=== PATIENT | female | born 1950 | race Caucasian/White ===

== ENCOUNTER 2019-10-21 13:47 | Observation (INO) ==
[2019-10-21] MEDS ORDERED: Aspirin 81 MG TAB.CHEW PO ONE (14:16)
[2019-10-21] MEDS ORDERED: 0.9 % Sodium Chloride 500 ML IVC ONE (14:16)
[2019-10-21 14:52] LABS: Basophils % 0.6 %; Eosinophils % 0.6 %; Hematocrit 45.1 % (35.3-44.9); Hemoglobin 15.6 g/dL (11.5-15.4); Immature Granulocytes % 0.1 % (0-4); Lymphocytes # 2.4 K/mcL (0.6-4.6); Lymphocytes % 33.7 %; Mean Corpuscular HGB Conc 34.6 g/dL (31.6-35.5); Mean Corpuscular Hemoglobin 32.5 pg (28.0-33.3); Mean Platelet Volume 10.3 fL (9.4-12.4); Monocytes # 0.5 K/mcL (0.0-1.3); Monocytes % 6.9 %; Neutrophils # 4.1 K/mcL (1.6-8.9); Platelet Count 159 K/mcL (140-400); Segmented Neutrophils % 58.1 %
[2019-10-21 14:59] LABS: INR 1.3; Prothrombin Time 15.2 Seconds (9.4-12.1)
[2019-10-21 15:02] LABS: Activated Partial Thrombo Time 32.5 Seconds (26.0-36.0)
[2019-10-21 15:03] LABS: D-Dimer < 215 ng/mLFEU (0-500)
[2019-10-21 15:12] LABS: Alanine Aminotransferase 25 Units/L (7-52); Albumin 4.1 g/dL (3.5-5.7); Albumin/Globulin Ratio 1.5 (1.1-2.2); Alkaline Phosphatase 75 Units/L (34-104); Amylase 34 Units/L (29-103); Aspartate Amino Transferase 30 Units/L (13-39); BUN/Creatinine Ratio 13 (6-26); Bilirubin,Direct 0.1 mg/dL (0.0-0.2); Bilirubin,Indirect 0.5 mg/dL (0.0-1.0); Bilirubin,Total 0.6 mg/dL (0.3-1.0); Blood Urea Nitrogen 11 mg/dL (8-23); Calcium 10.5 mg/dL (8.6-10.3); Carbon Dioxide 25 mEq/L (23-29); Chloride 102 mEq/L (98-107); Globulin 2.7 g/dL (2.4-3.5); Glucose 99 mg/dL (70-105); Lipase 57 Units/L (11-82); Osmolality,Calculated 279 (280-300); Potassium 4.3 mEq/L (3.5-5.1); Sodium 135 mEq/L (136-145); Total Protein 6.8 g/dL (6.4-8.9); Troponin I < 0.03 ng/mL (< 0.04); eGFR For African Americans > 60 (> 60); eGFR For Non-African Americans > 60 (> 60)
[2019-10-21] MEDS ORDERED: Perflutren Lipid Microsphere 1.3 ML in 0.9 % Sodium Chloride 8.7 ML IVP PRN (18:45)
[2019-10-21] MEDS ORDERED: Ondansetron ODT 4 MG TAB.RAPDIS SL PRN (18:50)
[2019-10-21] MEDS ORDERED: Naloxone 0.4 MG/ML INJ IVP PRN (18:50)
[2019-10-21] MEDS ORDERED: Nitroglycerin 0.4 MG TAB.SUBL SL PRN (18:57)
[2019-10-21] MEDS: Apixaban 5 MG TABLET PO SCH (19:53)
[2019-10-21] MEDS: *HR* HYDROcodone/Acet 10/325 mg TABLET PO PRN (19:53)
[2019-10-21] MEDS: Carisoprodol 350 MG TABLET PO PRN (23:02)
[2019-10-22 04:34] LABS: Basophils % 0.3 %; Eosinophils # 0.1 K/mcL (0.0-0.6); Eosinophils % 1.4 %; Hematocrit 45.4 % (35.3-44.9); Hemoglobin 15.5 g/dL (11.5-15.4); Immature Granulocytes % 0.3 % (0-4); Lymphocytes # 2.4 K/mcL (0.6-4.6); Mean Corpuscular HGB Conc 34.1 g/dL (31.6-35.5); Mean Corpuscular Hemoglobin 32.6 pg (28.0-33.3); Mean Corpuscular Volume 95.4 fL (83.0-100.0); Monocytes # 0.6 K/mcL (0.0-1.3); Monocytes % 10.7 %; Neutrophils # 2.6 K/mcL (1.6-8.9); Platelet Count 154 K/mcL (140-400); Red Blood Count 4.76 M/mcL (3.82-4.97); Red Cell Distribution Width 11.9 % (11.5-14.5); Segmented Neutrophils % 45.3 %; White Blood Count 5.8 K/mcL (4.3-11.1)
[2019-10-22 04:54] LABS: BUN/Creatinine Ratio 15 (6-26); Blood Urea Nitrogen 10 mg/dL (8-23); Calcium 10.7 mg/dL (8.6-10.3); Carbon Dioxide 25 mEq/L (23-29); Chloride 106 mEq/L (98-107); Glucose 110 mg/dL (70-105); Magnesium 1.9 mg/dL (1.6-2.6); Osmolality,Calculated 286 (280-300); Potassium 3.7 mEq/L (3.5-5.1); Sodium 138 mEq/L (136-145); eGFR For African Americans > 60 (> 60); eGFR For Non-African Americans > 60 (> 60)
[2019-10-22] MEDS ORDERED: Regadenoson 0.4 MG/5 ML SYRINGE IVP ONE (06:08)
[2019-10-22] MEDS ORDERED: lisinopriL 20 MG TABLET PO SCH (09:00)
[2019-10-22] MEDS ORDERED: amLODIPine 5 MG TABLET PO SCH (09:00)
[2019-10-22] MEDS ORDERED: Aspirin Enteric Coated 81 MG Tablet PO SCH (09:00)
[2019-10-22] MEDS: *HR* HYDROcodone/Acet 10/325 mg TABLET PO PRN ×2 (09:39→16:19)
[2019-10-22] MEDS: Apixaban 5 MG TABLET PO SCH (09:42)
[2019-10-22] MEDS: Carisoprodol 350 MG TABLET PO PRN (10:44)
[2019-10-22 12:42] VITALS: BP 148/93
== END 2019-10-22 16:45 | disposition home or self-care (01) ==
LOC: EMEROOARM 13:47 → 3BNU 13:47 → SUATTDRO 17:09 → 3BNU 18:44
PROVIDERS: ADMIT Internal Medicine; ATTEND Internal Medicine

== ENCOUNTER 2020-08-02 10:57 | Observation (INO) ==
[2020-08-02] MEDS ORDERED: Pantoprazole 80 MG in 0.9 % Sodium Chloride 50 ML IVPB ONE (11:15)
[2020-08-02 11:31] LABS: Basophils # 0.1 K/mcL (0.0-0.2); Basophils % 0.6 %; Eosinophils # 0.1 K/mcL (0.0-0.6); Eosinophils % 0.8 %; Hematocrit 41.2 % (35.3-44.9); Hemoglobin 14.2 g/dL (11.5-15.4); Immature Granulocytes % 0.6 % (0-4); Lymphocytes # 2.4 K/mcL (0.6-4.6); Lymphocytes % 24.5 %; Mean Corpuscular HGB Conc 34.5 g/dL (31.6-35.5); Mean Corpuscular Hemoglobin 32.6 pg (28.0-33.3); Mean Corpuscular Volume 94.7 fL (83.0-100.0); Mean Platelet Volume 10.5 fL (9.4-12.4); Monocytes # 0.6 K/mcL (0.0-1.3); Monocytes % 6.3 %; Neutrophils # 6.5 K/mcL (1.6-8.9); Platelet Count 159 K/mcL (140-400); Red Blood Count 4.35 M/mcL (3.82-4.97); Red Cell Distribution Width 12.2 % (11.5-14.5); Segmented Neutrophils % 67.2 %; White Blood Count 9.7 K/mcL (4.3-11.1)
[2020-08-02 11:49] LABS: INR 1.1; Prothrombin Time 12.8 Seconds (9.4-12.1)
[2020-08-02] MEDS ORDERED: *HR* Labetalol 20 MG/4 ML SYRINGE IVP ONE (11:50)
[2020-08-02 11:52] LABS: Activated Partial Thrombo Time 28.3 Seconds (26.0-36.0); BUN/Creatinine Ratio 22 (6-26); Blood Urea Nitrogen 17 mg/dL (8-23); Carbon Dioxide 22 mEq/L (23-29); Chloride 106 mEq/L (98-107); Glucose 120 mg/dL (70-105); Potassium 3.9 mEq/L (3.5-5.1); Sodium 137 mEq/L (136-145); eGFR For African Americans > 60 (> 60); eGFR For Non-African Americans > 60 (> 60)
[2020-08-02 11:53] LABS: Alanine Aminotransferase 27 Units/L (7-52); Albumin 4.1 g/dL (3.5-5.7); Albumin/Globulin Ratio 1.5 (1.1-2.2); Alkaline Phosphatase 81 Units/L (34-104); Aspartate Amino Transferase 25 Units/L (13-39); Bilirubin,Total 0.5 mg/dL (0.3-1.0); Calcium 10.4 mg/dL (8.6-10.3); Globulin 2.8 g/dL (2.4-3.5); Lipase 18 Units/L (11-82); Osmolality,Calculated 287 (280-300); Total Protein 6.9 g/dL (6.4-8.9); Troponin I < 0.03 ng/mL (< 0.04)
[2020-08-02] MEDS ORDERED: Naloxone 0.4 MG/ML INJ IVP PRN (12:45)
[2020-08-02] MEDS: amLODIPine 5 MG TABLET PO SCH (13:44)
[2020-08-02] MEDS: lisinopriL 20 MG TABLET PO SCH (13:44)
[2020-08-02] MEDS: Pantoprazole 40 MG VIAL IVP SCH (17:11)
[2020-08-03 05:05] LABS: Basophils % 0.5 %; Eosinophils # 0.1 K/mcL (0.0-0.6); Eosinophils % 1.9 %; Immature Granulocytes % 0.3 % (0-4); Lymphocytes # 2.6 K/mcL (0.6-4.6); Lymphocytes % 40.9 %; Mean Corpuscular HGB Conc 34.2 g/dL (31.6-35.5); Mean Corpuscular Hemoglobin 32.6 pg (28.0-33.3); Mean Corpuscular Volume 95.5 fL (83.0-100.0); Mean Platelet Volume 10.7 fL (9.4-12.4); Monocytes # 0.6 K/mcL (0.0-1.3); Monocytes % 9.8 %; Platelet Count 147 K/mcL (140-400); Red Blood Count 3.77 M/mcL (3.82-4.97); Red Cell Distribution Width 12.4 % (11.5-14.5); Segmented Neutrophils % 46.6 %; White Blood Count 6.4 K/mcL (4.3-11.1)
[2020-08-03 05:07] LABS: Hemoglobin 12.3 g/dL (11.5-15.4)
[2020-08-03 05:21] LABS: BUN/Creatinine Ratio 13 (6-26); Blood Urea Nitrogen 10 mg/dL (8-23); Carbon Dioxide 24 mEq/L (23-29); Chloride 110 mEq/L (98-107); Glucose 113 mg/dL (70-105); Magnesium 1.8 mg/dL (1.6-2.6); Osmolality,Calculated 290 (280-300); Phosphorous 2.8 mg/dL (2.7-4.5); Potassium 3.7 mEq/L (3.5-5.1); Sodium 140 mEq/L (136-145); eGFR For African Americans > 60 (> 60); eGFR For Non-African Americans > 60 (> 60)
[2020-08-03] MEDS: Pantoprazole 40 MG VIAL IVP SCH ×2 (06:06→18:08)
[2020-08-03] MEDS: amLODIPine 5 MG TABLET PO SCH (08:21)
[2020-08-03] MEDS: lisinopriL 20 MG TABLET PO SCH (08:21)
[2020-08-03] MEDS ORDERED: (Ezetimibe [Zetia] 10 MG Tablet) PO SCH (09:00)
[2020-08-03 10:16] LABS: Hematocrit 37.2 % (35.3-44.9); Hemoglobin 12.6 g/dL (11.5-15.4)
[2020-08-03] MEDS ORDERED: Lidocaine -MPF 2% 2 ML VIAL ONE (12:49)
[2020-08-03] MEDS ORDERED: *HR* Propofol 200 MG/20 ML VIAL IVP ONE (14:19)
[2020-08-03] MEDS ORDERED: *HR* Atropine Sulfate 8 MG/20 ML VIAL IVP ONE (14:26)
[2020-08-04 05:12] LABS: Basophils % 0.5 %; Eosinophils # 0.1 K/mcL (0.0-0.6); Eosinophils % 1.4 %; Hematocrit 35.1 % (35.3-44.9); Immature Granulocytes % 0.3 % (0-4); Lymphocytes # 1.9 K/mcL (0.6-4.6); Lymphocytes % 30.8 %; Mean Corpuscular HGB Conc 34.2 g/dL (31.6-35.5); Mean Corpuscular Hemoglobin 33.1 pg (28.0-33.3); Mean Corpuscular Volume 96.7 fL (83.0-100.0); Mean Platelet Volume 10.5 fL (9.4-12.4); Monocytes # 0.5 K/mcL (0.0-1.3); Neutrophils # 3.7 K/mcL (1.6-8.9); Platelet Count 142 K/mcL (140-400); Red Blood Count 3.63 M/mcL (3.82-4.97); Red Cell Distribution Width 12.1 % (11.5-14.5); White Blood Count 6.3 K/mcL (4.3-11.1)
[2020-08-04] MEDS: Pantoprazole 40 MG VIAL IVP SCH (06:25)
[2020-08-04 07:51] LABS: BUN/Creatinine Ratio 12 (6-26); Blood Urea Nitrogen 9 mg/dL (8-23); Carbon Dioxide 24 mEq/L (23-29); Chloride 110 mEq/L (98-107); Glucose 100 mg/dL (70-105); Osmolality,Calculated 291 (280-300); Potassium 3.7 mEq/L (3.5-5.1); Sodium 141 mEq/L (136-145); eGFR For African Americans > 60 (> 60); eGFR For Non-African Americans > 60 (> 60)
[2020-08-04] MEDS: amLODIPine 5 MG TABLET PO SCH (08:44)
[2020-08-04] MEDS: lisinopriL 20 MG TABLET PO SCH (08:44)
[2020-08-04] MEDS: Carisoprodol 350 MG TABLET PO PRN (21:48)
[2020-08-05 03:46] LABS: Basophils % 0.3 %; Eosinophils # 0.1 K/mcL (0.0-0.6); Eosinophils % 2.1 %; Hematocrit 33.1 % (35.3-44.9); Hemoglobin 11.4 g/dL (11.5-15.4); Immature Granulocytes % 0.5 % (0-4); Lymphocytes # 2.5 K/mcL (0.6-4.6); Lymphocytes % 37.4 %; Mean Corpuscular HGB Conc 34.4 g/dL (31.6-35.5); Mean Corpuscular Hemoglobin 33.3 pg (28.0-33.3); Mean Corpuscular Volume 96.8 fL (83.0-100.0); Mean Platelet Volume 10.5 fL (9.4-12.4); Monocytes # 0.6 K/mcL (0.0-1.3); Monocytes % 9.4 %; Neutrophils # 3.3 K/mcL (1.6-8.9); Platelet Count 143 K/mcL (140-400); Red Blood Count 3.42 M/mcL (3.82-4.97); Red Cell Distribution Width 12.2 % (11.5-14.5); Segmented Neutrophils % 50.3 %; White Blood Count 6.6 K/mcL (4.3-11.1)
[2020-08-05 04:09] LABS: BUN/Creatinine Ratio 18 (6-26); Blood Urea Nitrogen 17 mg/dL (8-23); Calcium 10.1 mg/dL (8.6-10.3); Carbon Dioxide 24 mEq/L (23-29); Chloride 107 mEq/L (98-107); Glucose 115 mg/dL (70-105); Osmolality,Calculated 288 (280-300); Potassium 3.7 mEq/L (3.5-5.1); Sodium 138 mEq/L (136-145); eGFR For African Americans > 60 (> 60); eGFR For Non-African Americans 59 (> 60)
[2020-08-05] MEDS: lisinopriL 20 MG TABLET PO SCH (08:08)
[2020-08-05] MEDS: amLODIPine 5 MG TABLET PO SCH (08:08)
[2020-08-05] MEDS ORDERED: SODIUM CHLORIDE/NAHCO3/KCL/PEG 4,000 ML SOLN.RECON PO ONE (17:00)
[2020-08-05] MEDS ORDERED: Ondansetron 4 MG/2 ML VIAL IVP PRN (20:16)
[2020-08-06] MEDS: Carisoprodol 350 MG TABLET PO PRN (01:56)
[2020-08-06] MEDS: amLODIPine 5 MG TABLET PO SCH (08:55)
[2020-08-06 08:59] LABS: Hematocrit 36.5 % (35.3-44.9); Hemoglobin 12.5 g/dL (11.5-15.4)
[2020-08-06] MEDS ORDERED: Lidocaine -MPF 2% 2 ML VIAL ONE (10:33)
[2020-08-06] MEDS ORDERED: *HR* Propofol 200 MG/20 ML VIAL IVP ONE (11:05)
[2020-08-06 12:14] VITALS: BP 124/79; PULSE 56; TEMP 98.4; O2SAT 96
[2020-08-06] MEDS ORDERED: Isovue-370 500 ML BOTTLE IVP ONE (13:14)
== END 2020-08-06 15:16 | disposition home or self-care (01) ==
LOC: EMEROOARM 10:57 → 3ANU 10:57 → SUATTDRO 13:14 → 3ANU 14:18
PROVIDERS: ADMIT Internal Medicine; ATTEND Family Medicine

== ENCOUNTER 2021-10-18 11:14 | Inpatient (IN) ==
[2021-10-18] MEDS ORDERED: CeFAZolin Syr 2,000MG/20 ML 2,000 MG/20 ML SYRINGE IVPB ONE (11:53)
[2021-10-18] MEDS ORDERED: Ringers Solution, Lactated 1,000 ML IVC SCH (12:00)
[2021-10-18] MEDS ORDERED: Famotidine 20 MG TABLET PO ONE (12:00)
[2021-10-18] MEDS ORDERED: Pregabalin 75 MG CAPSULE PO ONE (12:00)
[2021-10-18] MEDS ORDERED: tiZANidine 4 MG TABLET PO SCH (12:00)
[2021-10-18] MEDS ORDERED: *HR* Remifentanil 2 MG VIAL IVP ONE (12:20)
[2021-10-18] MEDS ORDERED: *HR* FentaNYL (PF) 100 MCG/2 ML VIAL ONE (12:20)
[2021-10-18] MEDS ORDERED: *HR* Midazolam HCl 2 MG/2 ML VIAL ONE (12:20)
[2021-10-18] MEDS ORDERED: Lidocaine -MPF 2% 5 ML VIAL ONE (12:21)
[2021-10-18] MEDS ORDERED: Lidocaine -MPF 4% 5 ML AMPUL ONE (12:21)
[2021-10-18] MEDS ORDERED: *HR* Succinylcholine 200 MG/10 ML VIAL IVP ONE (12:21)
[2021-10-18] MEDS ORDERED: *HR* Propofol 200 MG/20 ML VIAL IVP ONE (12:21)
[2021-10-18] MEDS ORDERED: *HR* Phenylephrine 10 MG/ML VIAL ONE (12:21)
[2021-10-18] MEDS ORDERED: Ondansetron 4 MG/2 ML VIAL ONE (12:21)
[2021-10-18] MEDS ORDERED: Clindamycin 900 MG/50 ML 900 MG/50 ML IV.SOLN IVPB ONE (12:22)
[2021-10-18] MEDS ORDERED: Acetaminophen IV 1,000 MG/100 ML BAG IVPB ONE (13:30)
[2021-10-18] MEDS ORDERED: Albuterol 2.5 MG/3 ML NEBULIZER IH PRN (13:32)
[2021-10-18] MEDS ORDERED: Naloxone 0.4 MG/ML INJ IVP PRN ×2 (13:32→19:25)
[2021-10-18] MEDS ORDERED: *HR* HYDROmorphone 2 MG TABLET PO PRN (13:32)
[2021-10-18] MEDS ORDERED: Ondansetron 4 MG/2 ML VIAL IVP PRN ×2 (13:32→19:25)
[2021-10-18] MEDS ORDERED: flumazeniL 0.5 MG/5 ML VIAL IVP PRN (13:32)
[2021-10-18] MEDS ORDERED: *HR* Labetalol 20 MG/4 ML SYRINGE IVP PRN (13:32)
[2021-10-18] MEDS ORDERED: *HR* Meperidine 25 MG/ML SYRINGE IVP PRN (13:32)
[2021-10-18] MEDS ORDERED: Ipratropium Neb 0.5 MG NEBULIZER IH PRN (13:32)
[2021-10-18] MEDS ORDERED: *HR* Metoprolol 5 MG/5 ML VIAL IVP PRN (13:32)
[2021-10-18] MEDS ORDERED: Vancomycin 1,000 MG VIAL ONE (13:42)
[2021-10-18] MEDS: *HR* FentaNYL (PF) 100 MCG/2 ML VIAL IVP PRN ×2 (17:05→17:10)
[2021-10-18] MEDS: *HR* HYDROmorphone PF 0.5 MG/0.5 ML SYRINGE IVP PRN ×4 (17:23→17:42)
[2021-10-18] MEDS ORDERED: *HR* FentaNYL (PF) 100 MCG/2 ML VIAL IVP PRN (17:47)
[2021-10-18] MEDS ORDERED: *HR* HYDROmorphone PF 0.5 MG/0.5 ML SYRINGE IVP PRN (17:47)
[2021-10-18] MEDS ORDERED: Acetaminophen 325 MG TABLET PO PRN (19:25)
[2021-10-18] MEDS ORDERED: *HR* HYDROcodone/Acet 5/325 mg TABLET PO PRN (19:25)
[2021-10-18] MEDS ORDERED: Carisoprodol 350 MG TABLET PO PRN (19:25)
[2021-10-18] MEDS: *HR* OxyCODONE Immed Rel 5 MG TABLET PO PRN (21:09)
[2021-10-18] MEDS: Ringers Solution, Lactated 1,000 ML IVC SCH (21:45)
[2021-10-18] MEDS ORDERED: Vancomycin 1,250 MG/262.5 ML IV.SOLN IVPB ONE (22:00)
[2021-10-19] MEDS: *HR* OxyCODONE Immed Rel 5 MG TABLET PO PRN ×4 (03:51→19:05)
[2021-10-19] MEDS: Ringers Solution, Lactated 1,000 ML IVC SCH ×2 (06:43→20:30)
[2021-10-19] MEDS: lisinopriL 10 MG TABLET PO SCH (10:06)
[2021-10-19] MEDS: amLODIPine 5 MG TABLET PO SCH (10:06)
[2021-10-19] MEDS: (Ezetimibe [Zetia] 10 MG Tablet) PO SCH (10:07)
[2021-10-19] MEDS ORDERED: *HR* Promethazine 25 MG/ML VIAL IM PRN (15:07)
[2021-10-19] MEDS ORDERED: Menthol 1 EACH LOZENGE PO PRN (19:40)
[2021-10-20] MEDS: Ringers Solution, Lactated 1,000 ML IVC SCH (05:06)
[2021-10-20] MEDS: amLODIPine 5 MG TABLET PO SCH (09:49)
[2021-10-20] MEDS: lisinopriL 10 MG TABLET PO SCH (09:50)
[2021-10-20] MEDS: (Ezetimibe [Zetia] 10 MG Tablet) PO SCH (09:50)
[2021-10-20 12:05] VITALS: TEMP 98.7; O2SAT 96
[2021-10-20] MEDS: *HR* OxyCODONE Immed Rel 5 MG TABLET PO PRN (12:05)
[2021-10-20 15:31] VITALS: BP 148/97; PULSE 87
== END 2021-10-20 18:57 | disposition home health service (06) | DRG 321 ==
LOC: SDCAOSI 11:14 → 4WAOSI 19:23
PROVIDERS: ADMIT Orthopaedic Surgery Orthopaedic Surgery of the Spine; ATTEND Orthopaedic Surgery Orthopaedic Surgery of the Spine